=== PATIENT | female | born 1980 | race Caucasian/White ===

== ENCOUNTER 2022-06-27 20:48 | Emergency (ER) | payer OTHER ==
[~2022-06-27 20:48] MED LIST: AMLO-257 PO; METO25 PO
== END 2022-06-27 22:53 | disposition left against medical advice (07) ==
LOC: EMS 20:52
DX: R07.9 Chest pain, unspecified (principal); Z53.21 Procedure and treatment not carried out due to patient leaving prior to being seen by health care provider